=== PATIENT | female | born 1960 | race Caucasian/White ===

== ENCOUNTER 2017-06-19 10:39 | Observation (INO) ==
--- NOTE | 2017-06-19 11:22 | Emergency Department Note ---
Disposition Clinical Impression: Stroke Qualifiers: CVA mechanism: occlusion Precerebral and cerebral artery: unspecified cerebral artery Qualified Code(s): I63.50 - Cerebral infarction due to unspecified occlusion or stenosis of unspecified cerebral artery Disposition: Admitted As Inpatient Condition: Fair Time of Disposition: 15:23 Neuro HPI - General Chief Complaint: ED Neuro Symptoms/Deficit Stated Complaint: numbness on right side x 2 days Time Seen by Provider: 06/19/17 10:53 Source: patient Limitations: no limitations Nursing Notes Reviewed: Yes Vital Signs Reviewed: Yes - History of Present Illness HPI Narrative: Patient is a 57-year-old female presents the emergency department with right- sided numbness. She states that this began approximately 2 days ago around 5: 30 PM. She said it has gotten slightly worse. She denies anything making her symptoms any better or worse. She states that she has tried ibuprofen and Tylenol without any relief. She says that she can feel touch but it just feels somewhat tingly. She denies any dizziness or difficulty with speech. She states that she was seen at [facility] on Thursday evening and had a CT scan, EKG and blood work and everything appeared to be fine. She states that she is coming to the emergency department due to the symptoms not getting any better. - Related Data Home Medications: Home Medications Medication Instructions Recorded Confirmed Ascorbic Acid [Vitamin C] 1,000 mg PO DAILY 06/19/17 06/19/17 Cyanocobalamin (Vitamin B-12) 1,000 mcg PO DAILY 06/19/17 06/19/17 [Vitamin B12] Lisinopril [Zestril] 20 mg PO DAILY 06/19/17 06/19/17 Vitamin E (Dl,Tocopheryl Acet) 1,000 unit PO DAILY 06/19/17 06/19/17 [Vitamin E] glipiZIDE [Glipizide] 10 mg PO BIDWM 06/19/17 06/19/17 metFORMIN [Glucophage] 1,000 mg PO QPM 06/19/17 06/19/17 metFORMIN [Glucophage] 1,500 mg PO QAM 06/19/17 06/19/17 Previous Rx's Medication Instructions Recorded Clopidogrel [Plavix] 75 mg PO DAILY #30 tablet 06/20/17 Rosuvastatin [Crestor] 20 mg PO HS #30 tablet 06/20/17 Allergies/Adverse Reactions: Allergies Allergy/AdvReac Type Severity Reaction Status Date / Time Penicillins Allergy Hives Verified 06/19/17 10:44 aspirin AdvReac See Verified 06/19/17 14:57 Comments morphine AdvReac Vomiting Verified 06/19/17 10:44 All systems ED: reviewed and negative except as stated. Neurological: Reports: numbness, paresthesias Past Medical History - Past Medical History Medical history: Reports: diabetes, hypertension Psychiatric history: Reports: no psych history CERTIFIED OPHTHALMIC ASSISTANT history: Reports: no CERTIFIED OPHTHALMIC ASSISTANT history - Social History Smoking Status: Current every day smoker Smokeless Tobacco Status: No Alcohol use: Reports: none Drug use: Reports: none Physical Exam - General Limitations: no limitations General appearance: alert, in no apparent distress - Head Head exam: atraumatic, normocephalic - Eye Eye exam: Present: normal appearance, PERRL, EOMI - ENT ENT exam: normal exam, normal oropharynx, mucous membranes moist - Neck Neck exam: Present: normal inspection, full ROM, trachea midline - Respiratory Respiratory exam: Present: normal lung sounds bilaterally. Absent: respiratory distress, wheezes - Cardiovascular Cardiovascular exam: Present: regular rate, normal rhythm, normal heart sounds, +S1, +S2 - Abdominal Exam Abdominal exam: Present: soft, Non-Tender, normal bowel sounds - Neurological Exam Neurological exam: Present: alert, oriented X3, CN II-XII intact, normal gait - Expanded Neurological Exam Patient oriented to: Present: person, place, time Speech: Present: fluid speech Cranial nerves: EOM function (II, III, IV, ): Normal, facial sensation (V): Abnormal Right (Decresed sensation to the right side of face), facial palsy (VII ): Normal, gag reflex (IX): Normal, spinal accessory function (XI): Normal, tongue deviation (XII): Normal Cerebellar function: finger to nose: Normal, heel to [place]: Normal Cerebellar function: normal gait, Romberg normal Motor strength - LUE: 5/5 Motor strength - RUE: 5/5 Motor strength - LLE: 5/5 Motor strength - RLE: 5/5 Upper motor neuron exam: brenda neglect: Absent bilaterally, pronator drift: Absent bilaterally Sensory exam upper extremity: light touch: Abnormal Right (decreased senation on the right ) Sensory exam lower extremity: light touch: Abnormal Right (decreased sensation on the right) Coma Scale Eye Opening: Spontaneous Coma Scale Motor Response: Obeys Commands Coma Scale Verbal Response: Oriented Coma Scale Total: 15 - Psychiatric Psychiatric exam: Present: normal affect, normal mood - Skin Skin exam: Present: warm, dry, intact Course Vital Signs Temperature 98.7 F 06/19/17 10:44 Pulse Rate 103 06/19/17 10:44 Respiratory Rate 20 06/19/17 10:44 Blood Pressure 135/87 06/19/17 10:44 O2 Sat by Pulse Oximetry 94 06/19/17 10:44 Temperature 98.6 F 06/20/17 15:32 Pulse Rate 97 06/20/17 15:32 Respiratory Rate 14 06/20/17 15:32 Blood Pressure 161/96 06/20/17 15:32 O2 Sat by Pulse Oximetry 96 06/20/17 15:32 Oxygen Delivery Oxygen Delivery Room Air Neuro Symptoms/Deficit - MDM Narrative Medical decision making narrative: Due the patient having continued numbness on her right side we will do a noncontrast CT of the head, CBC, BMP, urinalysis and urine drug screen. We will also obtain an EKG. We will also request medical records from [facility] due to the patient being seen 2 days ago for the same chief complaint. CT of the head showed no acute intracranial abnormalities. The patient did have an elevated blood glucose of 285. Patient states that she normally runs in the 200s due to her having diabetes. The patient will be given a dose of Ativan to help her calm down and have decrease cravings for cigarettes. We will also order MRI of the brain which showed a small 6 mm infarct in the thalamus. The MRAs of the neck were negative other than some 50 % stenosis of carotid. We discussed at length with the patient that she has had a stroke. We have encouraged the patient to be admitted to the hospital for further workup and management. The patient was somewhat resistant to being admitted but in the end agreed to stay in the hospital overnight. I called and spoke with the hospitalist who is except the patient to his service. The patient will be admitted to the hospital at this time. - Medical Records Medical records reviewed: Yes I reviewed the patient's medical records. - Lab Data Lab results reviewed: Yes I reviewed the patient's lab results. Result diagrams: 06/20/17 03:04 06/20/17 03:04 Lab Results 06/19/17 06/19/17 06/19/17 Range/Units 11:24 11:24 11:54 WBC 10.4 (4.3-11.1) K/mcL RBC 5.07 H (3.82-4.97) M/mcL Hgb 15.5 H (11.5-15.4) g/dL Hct 44.1 (35.3-44.9) % MCV 87.0 (83.0-100.0) fL MCH 30.6 (28.0-33.3) pg MCHC 35.1 (31.6-35.5) g/dL RDW 12.6 (11.5-14.5) % Plt Count 199 (140-400) K/mcL MPV 12.1 (9.4-12.4) fL Immature Gran % 0.5 (0-4) % Seg Neutrophils % 56.8 % Lymphocytes % 33.3 % Monocytes % 6.2 % Eosinophils % 2.3 % Basophils % 0.9 % Neutrophils # 5.9 (1.6-8.9) K/mcL Lymphocytes # 3.5 (0.6-4.6) K/mcL Monocytes # 0.6 (0.0-1.3) K/mcL Eosinophils # 0.2 (0.0-0.6) K/mcL Basophils # 0.1 (0.0-0.2) K/mcL PT (9.4-12.1) Seconds INR APTT (26.0-36.0) Seconds Sodium (136-145) mEq/L Potassium (3.5-5.1) mEq/L Chloride (98-107) mEq/L Carbon Dioxide (23-29) mEq/L BUN (6-20) mg/dL Creatinine (0.60-1.20) mg/dL Est GFR ( Amer) (> 60) Est GFR (Non-Af Amer) (> 60) BUN/Creatinine Ratio (6-26) Glucose (70-105) mg/dL Calculated Osmolality (280-300) Calcium (8.6-10.3) mg/dL Urine Color Yellow (Yellow) Urine Clarity Clear (Clear) Urine pH 7.0 (5.0-8.0) pH Units Ur Specific Bigelow 1.015 (1.010-1.025) Urine Protein 100 H (Neg-Trace) mg/dL Urine Glucose (UA) 100 H (Normal) mg/dL Urine Ketones Negative (Negative) mg/dL Urine Blood Negative (Negative) Urine Nitrite Negative (Negative) Urine Bilirubin Negative (Negative) Urine Urobilinogen Normal (Normal) mg/dL Ur Leukocyte Esterase Negative (Negative) Urine Microscopic RBC 0-3 (0-3) per hpf Urine Microscopic WBC 0-3 (0-3) per hpf Ur Squamous Epith Cells None Seen (None-Few) per lpf Urine Bacteria None Seen (None-Few) per hpf Hyaline Casts None Seen (None-Few) per lpf Ur Culture Indicated? NO (NO) Urine Opiates Screen Negative (Bgzvvf=636) ng/mL Ur Barbiturates Screen Negative (Dxfuzv=663) ng/mL Ur Phencyclidine Scrn Negative (Cutoff=25) ng/mL Ur Amphetamines Screen Negative (Eecbiw=2098) ng/mL U Benzodiazepines Scrn Negative (Qwsoss=840) ng/mL Urine Cocaine Screen Negative (Cutoff= 300) ng/mL U Marijuana (THC) Screen Negative (Cutoff = 50) ng/mL 06/19/17 06/19/17 Range/Units 11:54 11:54 WBC (4.3-11.1) K/mcL RBC (3.82-4.97) M/mcL Hgb (11.5-15.4) g/dL Hct (35.3-44.9) % MCV (83.0-100.0) fL MCH (28.0-33.3) pg MCHC (31.6-35.5) g/dL RDW (11.5-14.5) % Plt Count (140-400) K/mcL MPV (9.4-12.4) fL Immature Gran % (0-4) % Seg Neutrophils % % Lymphocytes % % Monocytes % % Eosinophils % % Basophils % % Neutrophils # (1.6-8.9) K/mcL Lymphocytes # (0.6-4.6) K/mcL Monocytes # (0.0-1.3) K/mcL Eosinophils # (0.0-0.6) K/mcL Basophils # (0.0-0.2) K/mcL PT 9.9 (9.4-12.1) Seconds INR 0.9 APTT 31.0 (26.0-36.0) Seconds Sodium 135 L (136-145) mEq/L Potassium 4.0 (3.5-5.1) mEq/L Chloride 104 (98-107) mEq/L Carbon Dioxide 25 (23-29) mEq/L BUN 10 (6-20) mg/dL Creatinine 0.61 (0.60-1.20) mg/dL Est GFR ( Amer) > 60 (> 60) Est GFR (Non-Af Amer) > 60 (> 60) BUN/Creatinine Ratio 16 (6-26) Glucose 285 H (70-105) mg/dL Calculated Osmolality 289 (280-300) Calcium 9.4 (8.6-10.3) mg/dL Urine Color (Yellow) Urine Clarity (Clear) Urine pH (5.0-8.0) pH Units Ur Specific Bigelow (1.010-1.025) Urine Protein (Neg-Trace) mg/dL Urine Glucose (UA) (Normal) mg/dL Urine Ketones (Negative) mg/dL Urine Blood (Negative) Urine Nitrite (Negative) Urine Bilirubin (Negative) Urine Urobilinogen (Normal) mg/dL Ur Leukocyte Esterase (Negative) Urine Microscopic RBC (0-3) per hpf Urine Microscopic WBC (0-3) per hpf Ur Squamous Epith Cells (None-Few) per lpf Urine Bacteria (None-Few) per hpf Hyaline Casts (None-Few) per lpf Ur Culture Indicated? (NO) Urine Opiates Screen (Rzkuyx=579) ng/mL Ur Barbiturates Screen (Bdnkti=762) ng/mL Ur Phencyclidine Scrn (Cutoff=25) ng/mL Ur Amphetamines Screen (Ercxrd=6379) ng/mL U Benzodiazepines Scrn (Ukbgdo=021) ng/mL Urine Cocaine Screen (Cutoff= 300) ng/mL U Marijuana (THC) Screen (Cutoff = 50) ng/mL - Radiology Data Radiology results reviewed: Yes I reviewed the patient's radiology results. Head CT 06/19/17 11:15 IMPRESSION: 1. No acute intracranial abnormality. D/ / Delroy Saldana MD / eDlroy Saldana MD Interpreting Provider: Delroy Saldana MD Brain MRI 06/19/17 12:06 IMPRESSION: There is a 6 mm area of restricted diffusion involving the lateral aspect of the left thalamus consistent with an acute infarct. No other areas of restricted diffusion. Minimal chronic small vessel ischemic changes in the white matter. D/ / 06/19/2017 13:48:37 Jayla Diaz MD / [facility] Interpreting Provider: Jayla Diaz MD Neck MRA 06/19/17 12:06 IMPRESSION: Mild, less than 50%, stenosis of the internal carotid arteries. No intracranial flow-limiting stenosis or aneurysm. D/ 06/19/2017 13:49:05 Bijan Mock MD / [facility] Interpreting Provider: Bijan Mock MD Head MRA 06/19/17 12:21 IMPRESSION: Mild, less than 50%, stenosis of the internal carotid arteries. No intracranial flow-limiting stenosis or aneurysm. D/ /19/2017 13:49:05 Bijan Mock MD / [facility] Interpreting Provider: Bijan Mock MD - EKG Data EKG attestation: Yes I reviewed and interpreted this EKG. EKG results narrative: EKG showed a sinus rhythm rate of 99 bpm, WA interval 180, QRS duration of 102, QTC of 407 there is no previous EKG for comparison at this time. NIH Stroke Scale - Level of Consciousness LOC: Alert - LOC Questions LOC Questions: Answers both correctly - LOC Commands LOC Commands: Performs both correctly - Best Gaze Best Gaze: Normal - Visual Visual: No visual loss - Facial Palsy Facial Palsy: Normal - Motor Arms Motor Arm-Left: No drift for 10 seconds Motor Arm-Right: No drift for 10 seconds - Motor Legs Motor Leg-Left: No drift for 5 seconds Motor Leg-Right: No drift for 5 seconds - Limb Ataxia Limb Ataxia: Normal, No Ataxia - Sensory Sensory: Mild to moderate loss, "not as sharp" - Best Language Best Language: No aphasia - Dysarthria Dysarthria: Normal - Extinction and Inattention Extinction and Inattention: Normal - NIHSS Total Score NIHSS Total Score: 1 Attestation Statement - Attestation Attestation: I examined this patient and my medical decision-making was reviewed with the Resident Physician. I agree with the documented findings, disposition and treatment plan as described except to the extent set forth below. Findings consistent with stroke. MRI consistent with stroke. We will admit for medical maximization and advanced testing including cardiac echo. Patient cannot get aspirin as she has a disorder interrupting platelet function. I spent greater than 35 minutes of critical care time resuscitating this acutely ill patient suffering from stroke. This is a sodium billable procedures.
[2017-06-19 11:37] LABS: Bilirubin,Urine Negative (Negative); Blood,Urine Negative (Negative); Clarity,Urine Clear (Clear); Color,Urine Yellow (Yellow); Glucose,Urine (UA) 100 mg/dL (Normal); Ketones,Urine Negative (Negative); Leukocyte Esterase,Urine Negative (Negative); Nitrite,Urine Negative (Negative); Protein,Urine 100 mg/dL (Neg-Trace); Specific Gravity,Urine 1.015 (1.010-1.025); Urobilinogen,Urine Normal (Normal)
[2017-06-19 11:43] LABS: Bacteria,Urine None Seen per hpf (None-Few); Hyaline Casts,Urine None Seen per lpf (None-Few); RBC,Urine 0-3 per hpf (0-3); Squamous Epithelial Cell,Urine None Seen per lpf (None-Few); WBC,Urine 0-3 per hpf (0-3)
[2017-06-19 11:45] LABS: Amphetamine Screen,Urine Negative ng/mL (Cutoff=1000); Barbiturate Screen,Urine Negative ng/mL (Cutoff=200); Benzodiazepines Screen,Urine Negative ng/mL (Cutoff=200); Cannabinoid Screen,Urine Negative ng/mL (Cutoff = 50); Cocaine Screen,Urine Negative ng/mL (Cutoff= 300); Opiate Screen,Urine Negative ng/mL (Cutoff=300); Phencyclidine Screen,Urine Negative ng/mL (Cutoff=25)
[2017-06-19 12:22] LABS: Basophils # 0.1 K/mcL (0.0-0.2); Basophils % 0.9 %; Eosinophils # 0.2 K/mcL (0.0-0.6); Eosinophils % 2.3 %; Hematocrit 44.1 % (35.3-44.9); Hemoglobin 15.5 g/dL (11.5-15.4); Immature Granulocytes % 0.5 % (0-4); Lymphocytes # 3.5 K/mcL (0.6-4.6); Lymphocytes % 33.3 %; Mean Corpuscular HGB Conc 35.1 g/dL (31.6-35.5); Mean Corpuscular Hemoglobin 30.6 pg (28.0-33.3); Mean Platelet Volume 12.1 fL (9.4-12.4); Monocytes # 0.6 K/mcL (0.0-1.3); Monocytes % 6.2 %; Neutrophils # 5.9 K/mcL (1.6-8.9); Platelet Count 199 K/mcL (140-400); Red Blood Count 5.07 M/mcL (3.82-4.97); Red Cell Distribution Width 12.6 % (11.5-14.5); Segmented Neutrophils % 56.8 %
[2017-06-19 12:28] LABS: INR 0.9; Prothrombin Time 9.9 Seconds (9.4-12.1)
[2017-06-19 12:54] LABS: BUN/Creatinine Ratio 16 (6-26); Blood Urea Nitrogen 10 mg/dL (6-20); Calcium 9.4 mg/dL (8.6-10.3); Carbon Dioxide 25 mEq/L (23-29); Chloride 104 mEq/L (98-107); Glucose 285 mg/dL (70-105); Osmolality,Calculated 289 (280-300); Sodium 135 mEq/L (136-145); eGFR For African Americans > 60 (> 60); eGFR For Non-African Americans > 60 (> 60)
[2017-06-19] MEDS ORDERED: *HR* LORazepam 2 MG/ML VIAL IVP ONE (14:48)
[2017-06-19] MEDS ORDERED: Naloxone 0.4 MG/ML INJ IVP PRN (16:12)
[2017-06-19] MEDS ORDERED: MOM Conc 10 ML UD.LIQ PO PRN (16:12)
[2017-06-19] MEDS ORDERED: Acetaminophen 325 MG TABLET PO PRN (16:12)
[2017-06-19] MEDS ORDERED: *HR* HYDROcodone/Acet 5/325 mg TABLET PO PRN (16:12)
[2017-06-19] MEDS ORDERED: Ondansetron ODT 4 MG TAB.RAPDIS SL PRN (16:12)
[2017-06-19] MEDS ORDERED: D5% in Water 1,000 ML IVC PRN (16:18)
[2017-06-19] MEDS ORDERED: *HR* Dextrose 50 % in Water (Syg) 50 ML SYRINGE IVP PRN (16:18)
[2017-06-19] MEDS ORDERED: Dextrose Gel 15 GM PO PRN ×2 (16:18)
--- NOTE | 2017-06-19 16:33 | Internal Med History&Physical ---
Date of Encounter: 06/19/17 Time of Encounter: 15:50 Assessment and Plan (1) CVA (cerebral vascular accident) Current visit: Yes Status: Acute Patient reports sudden onset right-sided numbness and weakness 2 days ago. She reported that it started in left lower extremity and spread "in a wave" to entire right lower extremity, right hand, right arm, right face. Patient has sensory deficit in right foot, patient has some minimal right hand swelling, obvious right arm weakness. Grasps are strong and equal, she is able to also grasp a pen. There is no pronator drift. Bilateral leg strength is strong and equal. There is no facial droop, facial movements are symmetrical. She has no dysphagia or dysarthria. Brain MRI showed 6 mm area of restricted diffusion involving lateral aspect of left thalamus consistent with acute infarct, as well as minimal chronic small vessel ischemic changes in the white matter. Neck and head MRA showed less than 50% stenosis of ICAs, no intracranial flow limiting stenosis or aneurysm. Head CT was negative for acute intracranial abnormality. In the past, patient has been resistant to taking any form of antiplatelet or anticoagulation due to Schamburg's disease. She also states she has been unsuccessful with statins in the past. She is reports nausea, vomiting, body aches when taking a statin. I discussed starting ASA with physician, will start ASA 81mg po daily and monitor. Continuous telemetry PT and OT consultations Echo pending Neurology consultation is pending. I spoke with Dr. Tian via phone. I appreciate his consultation and recommendations. Qualifiers: CVA mechanism: occlusion Precerebral and cerebral artery: other precerebral artery Qualified Code(s): I63.29 - Cerebral infarction due to unspecified occlusion or stenosis of other precerebral arteries (2) Right sided weakness Current visit: Yes Status: Acute Plan as above. (3) Type II diabetes mellitus Current visit: Yes Status: Acute A1c in the morning. Continue diabetic diet, sliding scale insulin, Accu-Cheks before meals and at bedtime Qualifiers: Diabetes mellitus complication status: without complication Diabetes mellitus intermediate insulin use: without watermelon inspector use Qualified Code(s): E11.9 - Type 2 diabetes mellitus without complications (4) HTN (hypertension) Current visit: Yes Status: Acute Blood pressure slightly above baseline, we will allow for permissive hypertension. Continue to closely monitor vital signs. 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 Patient with purpura to bilateral lower extremities. She denies pain. (6) DVT prophylaxis Current visit: Yes Status: Acute Patient up to chair, bathroom privileges. SCDs ordered. Internal Medicine - H&P: HPI Chief complaint: left side weakness/numbness Admitted From: Home Plans for Post Hospital Care: Home History of present illness: Ms. Dobbins is a 57 year old female with PMH including DMII, HTN, and Schamberg's Ds. Pt reports that she began having left leg numbness and weakness after standing from dining room table. Pt states that "in a wave" she had weakness and numbness extend from her left leg to left hand and arm to left face. Onset 2 night ago at approximately 1730. Pt states that she went to [facility] where she stayed for 5 hours and was told that testing was negative and she declined admission. She went home and presented here today for further testing. Pt denies headache, blurred vision, dysphagia, dysarthria, chest pain, syncope, shortness of breath, n/v/d, or diaphoresis. Pt is being admitted for CVA and monitoring. Discussed case with Dr. Lehman who agrees with plan of care. We will start pt on ASA 81mg po daily and monitor for effects of Schamberg's disease. Past Med Surg Social Fam HX - Past Medical History Medical history: diabetes, hypertension Psychiatric history: no psych history - Social History Smoking Status: Current every day smoker Smokeless Tobacco Status: No Alcohol use: none Drug use: none Internal Medicine - H&P: Meds Ascorbic Acid [Vitamin C] 1,000 mg PO DAILY 06/19/17 [History] Cyanocobalamin (Vitamin B-12) [Vitamin B12] 1,000 mcg PO DAILY 06/19/17 [History ] Lisinopril [Zestril] 20 mg PO DAILY 06/19/17 [History] Vitamin E (Dl,Tocopheryl Acet) [Vitamin E] 1,000 unit PO DAILY 06/19/17 [History ] glipiZIDE [Glipizide] 10 mg PO BIDWM 06/19/17 [History] metFORMIN [Glucophage] 1,000 mg PO QPM 06/19/17 [History] metFORMIN [Glucophage] 1,500 mg PO QAM 06/19/17 [History] 3 Allergy/AdvReac Type Severity Reaction Status Date / Time Penicillins Allergy Hives Verified 06/19/17 10:44 aspirin AdvReac See Verified 06/19/17 14:57 Comments morphine AdvReac Vomiting Verified 06/19/17 10:44 All Systems PM: A 10-system review of systems was performed and is negative for pertinent findings except as documented above in the HPI. - Constitutional Constitutional: weakness, no chills, no fever(s), no night sweats - EENT Eyes: no change in vision, no discharge, no pain, no photophobia Ears: no ear discharge, no ear pain, no tinnitus Nose, mouth and throat: no dysphagia, no nasal discharge, no neck pain, no sore throat - Cardiovascular Cardiovascular ROS IM: no chest pain, no diaphoresis, no dyspnea, no irregular heart rhythm, no lightheadedness, no palpitations, no syncope - Respiratory Respiratory: no cough, no dyspnea, no wheezing, no stridor, no pain on inspiration, no excessive phlegm production - Gastrointestinal Gastrointestinal: no abdominal pain, no change in bowel habits, no diarrhea, no hematemesis, no hematochezia, no melena, no nausea, no vomiting - Genitourinary Genitourinary: no change in urinary stream, no dysuria, no flank pain, no hematuria - Musculoskeletal Musculoskeletal ROS IM: muscle weakness, numbness, no back pain, no tingling - Integumentary Integumentary IM: no rash, no unusual bruising - Neurological Neurological ROS: numbness, paresthesias, weakness, no confusion, no convulsions , no dizziness, no focal weakness, no headache(s), no loss of vision, no tingling, no tremor(s) - Hematologic/Lymphatic Hematologic/Lymphatic: no easy bruising, no lymphadenopathy - Constitutional Vitals: Temp Pulse Resp BP Pulse Ox 97.6 F 98 14 157/95 95 06/19/17 15:52 06/19/17 15:52 06/19/17 15:52 06/19/17 15:52 06/19/17 15:52 General appearance: Present: cooperative, A&O X 3, pleasant, no acute distress, answers questions appropriately - Head Head exam: Present: atraumatic, normal inspection, normocephalic - Eye Eye exam: Present: normal appearance, conjuntiva pink, sclera anicteric. Absent : nystagmus - Neck Neck exam general surgery: Present: normal inspection, supple, trachea midline. Absent: lymphadenopathy, tenderness, thyromegaly - Respiratory Respiratory exam: Present: CTAB. Absent: accessory muscle use, chest wall tenderness, rales, respiratory distress, rhonchi, wheezes - Cardiovascular Cardiovascular exam: Present: RRR, +S1, +S2. Absent: diastolic murmur, gallop, rubs, systolic murmur - GI/Abdominal GI/Abdominal exam: Present: normal bowel sounds, soft, no peritoneal signs. Absent: distended, hepatomegaly, tenderness - Extremities Exam Extremities exam: Present: normal capillary refill, warm, radial pulses palpable and symmetrical. Absent: calf tenderness, cyanotic, pedal edema, tenderness - Neurological Exam Neurological exam: Present: alert, motor sensory deficit, oriented X3. Absent: altered, strengths equal and symetr throughout, facial droop, speech deficit - Skin Skin exam: Present: dry, intact, normal color, petechiae, warm. Absent: rash Internal Med - H&P Results - Labs CBC & Chem 7: 06/19/17 11:54 06/19/17 11:54
[2017-06-19] MEDS: Insulin LISPRO 300 UNITS/3 ML VIAL SQ SCH ×2 (17:21→17:26)
[2017-06-19] MEDS: Aspirin 81 MG TAB.CHEW PO SCH ×2 (17:41→17:51)
[2017-06-19] MEDS: Nicotine 14 MG PATCH.TD24 TD SCH ×2 (17:52→18:13)
[2017-06-19] MEDS: *HR* Heparin 5,000 UNIT/ML VIAL SQ SCH (18:28)
--- NOTE | 2017-06-19 18:40 | Event Note ---
Date of Encounter: 06/19/17 Time of Encounter: 18:37 Patient seen and examined with nurse practitioner. Acute left CVA due to left thalamic infarct causing right-sided Jluis-hypothesia. She mentioned that she had previously evidence of 70 to 80% occlusion and the left carotid but then she was symptomatic. Stroke workup. NIH stroke scale Q4 hours. She has a diagnosis of Schamberg disease which can get worse with aspirin. However discussed with her that it is not life-threatening, and aspirin is important for secondary prevention of stroke. Appreciate neurology input
[2017-06-19] MEDS ORDERED: Insulin LISPRO 300 UNITS/3 ML VIAL SQ SCH (21:00)
[2017-06-20 04:08] LABS: Basophils # 0.1 K/mcL (0.0-0.2); Basophils % 0.8 %; Eosinophils # 0.3 K/mcL (0.0-0.6); Eosinophils % 2.7 %; Hematocrit 42.1 % (35.3-44.9); Hemoglobin 14.3 g/dL (11.5-15.4); Immature Granulocytes % 0.7 % (0-4); Lymphocytes % 42.1 %; Mean Corpuscular Hemoglobin 29.9 pg (28.0-33.3); Mean Corpuscular Volume 87.9 fL (83.0-100.0); Mean Platelet Volume 12.2 fL (9.4-12.4); Monocytes # 0.6 K/mcL (0.0-1.3); Monocytes % 6.7 %; Neutrophils # 4.5 K/mcL (1.6-8.9); Platelet Count 189 K/mcL (140-400); Red Blood Count 4.79 M/mcL (3.82-4.97); Red Cell Distribution Width 12.7 % (11.5-14.5)
[2017-06-20 04:14] LABS: Hemoglobin A1C 10.1 %
[2017-06-20 04:26] LABS: BUN/Creatinine Ratio 19 (6-26); Blood Urea Nitrogen 13 mg/dL (6-20); Calcium 8.9 mg/dL (8.6-10.3); Carbon Dioxide 26 mEq/L (23-29); Chloride 101 mEq/L (98-107); Chol/HDL Ratio 8.9 (0-4.9); Cholesterol 239 mg/dL (< 200); Glucose 398 mg/dL (70-105); HDL Cholesterol 27 mg/dL (40-59); Osmolality,Calculated 295 (280-300); Potassium 3.6 mEq/L (3.5-5.1); Sodium 134 mEq/L (136-145); Triglycerides 846 mg/dL (< 150); eGFR For African Americans > 60 (> 60); eGFR For Non-African Americans > 60 (> 60)
[2017-06-20] MEDS: *HR* Heparin 5,000 UNIT/ML VIAL SQ SCH (05:05)
--- NOTE | 2017-06-20 07:59 | Electrocardiograph Report ---
[address] [place] [id number] Test Date: 2017-06-19 Pat Name: Judie Dobbins Department: 104 Room: 2NE28 Gender: F Malt Loader: DREW : 1960 Requested By: Kurt Summers Order Number: [id number] Reading MD: Rafat Guillen DO Measurements Intervals Rufus Rate: 99 P: 35 VA: 180 QRS: -65 QRSD: 102 T: 31 QT: 351 QTc: 407 Interpretive Statements SINUS RHYTHM POSSIBLE LEFT ATRIAL ENLARGEMENT LEFT ANTERIOR FASCICULAR BLOCK ANTEROLATERAL MYOCARDIAL INFARCTION, OF INDETERMINATE AGE Electronically Signed On 06-20-2017 7:57:45 EST by Rafat Guillen DO
[2017-06-20] MEDS: Insulin LISPRO 300 UNITS/3 ML VIAL SQ SCH ×2 (08:04→12:27)
[2017-06-20] MEDS: Nicotine 14 MG PATCH.TD24 TD SCH (08:05)
[2017-06-20] MEDS: Aspirin 81 MG TAB.CHEW PO SCH (08:07)
[2017-06-20] MEDS ORDERED: Lisinopril 20 MG TABLET PO SCH (09:00)
[2017-06-20] MEDS ORDERED: Cyanocobalamin (B-12) 1,000 MCG TABLET PO SCH (09:00)
[2017-06-20] MEDS ORDERED: Ascorbic Acid 500 MG TABLET PO SCH (09:00)
[2017-06-20] MEDS ORDERED: VITAMIN E PO SCH (09:00)
--- NOTE | 2017-06-20 14:36 | Discharge Summary ---
Date of Encounter: 06/20/17 Time of Encounter: 11:00 - Discharge Diagnosis (1) CVA (cerebral vascular accident) Priority: Primary Status: Acute Qualifiers: CVA mechanism: occlusion Precerebral and cerebral artery: other precerebral artery Qualified Code(s): I63.29 - Cerebral infarction due to unspecified occlusion or stenosis of other precerebral arteries (2) Type II diabetes mellitus Priority: Secondary Status: Acute Qualifiers: Diabetes mellitus complication status: without complication Diabetes mellitus supervisor intermediates insulin use: without half-way use Qualified Code(s): E11.9 - Type 2 diabetes mellitus without complications (3) HTN (hypertension) Priority: Secondary Status: Acute Qualifiers: Hypertension type: essential hypertension Qualified Code(s): I10 - Essential (primary) hypertension (4) Schamberg's disease Priority: Secondary Status: Chronic - Discharge Medications Prescriptions: Clopidogrel [Plavix] 75 mg PO DAILY #30 tablet Rosuvastatin [Crestor] 20 mg PO HS #30 tablet Home Medications: Ascorbic Acid [Vitamin C] 1,000 mg PO DAILY 06/19/17 [History] Cyanocobalamin (Vitamin B-12) [Vitamin B12] 1,000 mcg PO DAILY 06/19/17 [History ] Lisinopril [Zestril] 20 mg PO DAILY 06/19/17 [History] Vitamin E (Dl,Tocopheryl Acet) [Vitamin E] 1,000 unit PO DAILY 06/19/17 [History ] glipiZIDE [Glipizide] 10 mg PO BIDWM 06/19/17 [History] metFORMIN [Glucophage] 1,000 mg PO QPM 06/19/17 [History] metFORMIN [Glucophage] 1,500 mg PO QAM 06/19/17 [History] Clopidogrel [Plavix] 75 mg PO DAILY #30 tablet 06/20/17 [Rx] Rosuvastatin [Crestor] 20 mg PO HS #30 tablet 06/20/17 [Rx] Allergies/Adverse Reactions: 3 Allergy/AdvReac Type Severity Reaction Status Date / Time Penicillins Allergy Hives Verified 06/19/17 10:44 aspirin AdvReac See Verified 06/19/17 14:57 Comments morphine AdvReac Vomiting Verified 06/19/17 10:44 Procedures/tests Complete & Pending: Procedures Performed prior 72 hours Category Date Time Status EV echocardiogram Routine Y 06/19/17 16:16 Completed Date of admission: 06/19/17 15:27 Primary care physician: PCP NONE Consults: 06/19/17 16:15 Consult to Occupational Therapy [CONS] Routine Comment: Evaluate, develop and implement POC Reason for Consult: Evaluation s/p CVA Consult to Physical Therapy [CONS] Routine Comment: Evaluate, develop and implement POC Reason for Consult: Evaluation s/p CVA 06/19/17 16:58 Consult to Neurology [CONS] Routine Consulting Provider: Neurology [facility] Reason for Consult: CVA, right sided weakness Call Completed: No - Patient Status Disposition: Home, Self-Care Condition: Fair - Discharge Instructions Follow Up With: NONE,PCP [Primary Care Provider] - Hospital course: Patient is a 57-year-old female past medical history significant for DMII, HTN, and Schamberg's disease who presents to the ER on 06/19/17 due to left sided ultrasound sensation and weakness. Patient reported that shortly after standing up from the dining room table she experienced left upper and lower extremity numbness and weakness She was concerned and decided to go to [facility] ER where she stayed for 5 hours and was told that testing was negative and she declined admission. She went home and presented to [facility] ON 06/19/17 for further testing and patient was admitted to medical surgical floor for further evaluation and workup. During patients hospital stay, MRI of the brain was done which showed a 6 mm area of restricted diffusion involving the lateral aspect of the left thalamus consistent with an acute infarct. MRA of the head and neck was also done which showed a mild, less than 50%, stenosis of the internal carotid arteries. An echocardiogram was also done which showed No evidence of PFO with agitated saline contrast. Neurology was consulted with recommendations for discontinuation of aspirin and to start Plavix in addition to starting a statin. - Time Spent with Patient Total time spent providing and/or coordinating discharge services: Less than 30 minutes - Constitutional Vitals: Temp Pulse Resp BP Pulse Ox 97.7 F 89 14 170/89 94 06/20/17 11:22 06/20/17 11:22 06/20/17 11:22 06/20/17 11:22 06/20/17 11:22 General appearance: Present: cooperative, A&O X 3, pleasant, no acute distress, answers questions appropriately - Respiratory Respiratory exam: Present: CTAB. Absent: accessory muscle use, rales, rhonchi, wheezes - Cardiovascular Cardiovascular exam: Present: RRR, +S1, +S2. Absent: diastolic murmur, gallop, rubs, systolic murmur
[2017-06-20 15:36] VITALS: BP 161/96
--- NOTE | 2017-06-20 19:58 | Neurology - Consult Note ---
Date of Encounter: 06/20/17 Time of Encounter: 11:51 Assessment and Plan (1) CVA (cerebral vascular accident) Current Visit: Yes Status: Acute Likely lacunar infarct secondary to small vessel occlusion, related to history of HTN and hyperlipidemia. Is relatively contraindicated for aspirin as it triggers her schamberg syndrome. Will recommend plavix 75mg daily instead of aspirin. However, Plavix may also aggravate her schamberg symptoms. Needs close clinical monitoring. Continue statin therapy for hyperlipidemia. Patient's work up for stroke completed. Await echocardiography report. Patient can be discharged home it echocardiography returns unremarkable Qualifiers: CVA mechanism: occlusion Precerebral and cerebral artery: unspecified cerebral artery Qualified Code(s): I63.50 - Cerebral infarction due to unspecified occlusion or stenosis of unspecified cerebral artery History of Present Illness Chief complaint: right sided numbness HPI: Ms. Dobbins is a 57 year old female with PMH significant for HTN and hyperlipidemia who developed acute onset of right sided paresthesia. The symtoms started on Thursday when she was eating. She suddenly developed right sided paresthesia, strictly midline fashion. She felt water pouring on her right leg. No weakness, no speech difficulty, no mental status changes. She had HTN for about 8-9 years. She has been taking lisinopril few years. She has hyperlipidemia. She has Schamberg syndrome, which was triggered by Aspirin. MRI of brain without contrast showed acute lacunar infarct involving the left posterior limb of internal capsule. Echocardiography completed and reports is still pending. She feels fine but the right sided paresthesia still present. Past Med Surg Social Fam HX - Past Medical History Medical history: diabetes, hypertension Psychiatric history: no psych history - Social History Smoking Status: Current every day smoker Smokeless Tobacco Status: No Alcohol use: none Drug use: none Medications and Allergies Ascorbic Acid [Vitamin C] 1,000 mg PO DAILY 06/19/17 [History] Cyanocobalamin (Vitamin B-12) [Vitamin B12] 1,000 mcg PO DAILY 06/19/17 [History ] Lisinopril [Zestril] 20 mg PO DAILY 06/19/17 [History] Vitamin E (Dl,Tocopheryl Acet) [Vitamin E] 1,000 unit PO DAILY 06/19/17 [History ] glipiZIDE [Glipizide] 10 mg PO BIDWM 06/19/17 [History] metFORMIN [Glucophage] 1,000 mg PO QPM 06/19/17 [History] metFORMIN [Glucophage] 1,500 mg PO QAM 06/19/17 [History] Clopidogrel [Plavix] 75 mg PO DAILY #30 tablet 06/20/17 [Rx] Rosuvastatin [Crestor] 20 mg PO HS #30 tablet 06/20/17 [Rx] 3 Allergy/AdvReac Type Severity Reaction Status Date / Time Penicillins Allergy Hives Verified 06/19/17 10:44 aspirin AdvReac See Verified 06/19/17 14:57 Comments morphine AdvReac Vomiting Verified 06/19/17 10:44 All Systems: A 10-system review of systems was performed and is negative for pertinent findings except as documented above in the HPI. Physical Examination - Vital Signs Vital Signs: Initial Vital Signs Temp Pulse Resp BP Pulse Ox 98.7 F 103 20 135/87 94 06/19/17 10:44 06/19/17 10:44 06/19/17 10:44 06/19/17 10:44 06/19/17 10:44 - Constitutional General appearance: comfortable - Neurologic Detailed motor examination: full strength in all major muscle groups Motor examination - right side: 5/5: deltoids, biceps, triceps, wrist flexion, wrist extension, sales merchandising specialist, hip flexors, tibialis Anterior, quadriceps, toe extension (EHL), plantarflexion Motor examination - left side: 5/5: deltoids, biceps, triceps, wrist flexion, wrist extension, hip flexors, sales merchandising specialist, quadriceps, tibialis Anterior, toe extension (EHL), plantarflexion Detailed sensory examination: other (right sided hemiparesthesia noted. ) Posture: other (None) Reflex and gait examination: intact Reflexes: Biceps: 2+, Triceps: 2+, Brachioradialis: 2+, Patella: 2+, Achilles: 2 + Mental Status Examination: awake, alert, oriented to person, oriented to place, oriented to time, follows commands appropriately, answers questions appropriately, no agnosia, no aphasia, no aproxia Cranial nerve examination: PERRL, EOMI, visual [place] intact, corneal reflexes brisk symmetrically, sensory to face intact, mastication intact, no facial asymmetry is present, no dysarthria, hearing is intact symmetrically, soft palate elevates bilaterally upon phonation, gag reflex intact, flexes SCM and trapezius muscles symmetrically with full power, tongue protrudes midline, no atrophy or facial fasiculations present Cerebellar examination: no dysmetria, performs finger to nose and heel to [place] symmetrically without ataxia, no gait ataxia, no truncal ataxia, no difficulty with rapid alternating movements Results - Laboratory Findings CBC and BMP: 06/20/17 03:04 06/20/17 03:04 Abnormal lab findings: Abnormal lab results Sodium 134 mEq/L (136-145) L 06/20/17 03:04 Glucose 398 mg/dL (70-105) H 06/20/17 03:04 POC Glucose 363 (58-89) H 06/20/17 07:38 Hemoglobin A1c 10.1 % (-5.6) H 06/20/17 03:04 Triglycerides 846 mg/dL (< 150) H 06/20/17 03:04 Cholesterol 239 mg/dL (< 200) H 06/20/17 03:04 HDL Cholesterol 27 mg/dL (40-59) L 06/20/17 03:04 Cholesterol/HDL Ratio 8.9 (0-4.9) H 06/20/17 03:04 Urine Protein 100 mg/dL (Neg-Trace) H 06/19/17 11:24 Urine Glucose (UA) 100 mg/dL (Normal) H 06/19/17 11:24 - Diagnostic Findings Additional findings: MR/MR angio neck wo con IMPRESSION: Mild, less than 50%, stenosis of the internal carotid arteries. No intracranial flow-limiting stenosis or aneurysm. EV/EV echocardiogram Impressions: LVEF 60%. Mild left ventricular diastolic dysfunction. Normal right ventricular structure and function. No significant valve dysfunction. No pulmonary hypertension. No evidence of PFO with agitated saline contrast. Consult Discharge Plan - Plan Instructions: Clopidogrel (By mouth), Rosuvastatin (By mouth), Ischemic Stroke (GEN), Chronic Hypertension (DC) Additional Instructions: 1)Follow up with primary care physician in 5-7days. 2)Follow up with neurologist in 7 days. Follow-up appointments: If there is not an appointment listed below, please call your physician and schedule a follow-up appointment. If you have congestive heart failure and your symptoms return, make an appointment with your physician. Medication List: Carry an up to date list of medications you are taking at all time. We have given you an updated medication list including any new medications that you have been prescribed. Please provide that list to your primary provider Symptoms: If your condition changes or you experience any of the following symptoms, notify your physician immediately: Unusual or worsening pain, fever, persistent nausea and vomiting, bleeding, increase in swelling (especially in your legs), sudden weight gain, extreme dizziness, chest pain, increased drainage or redness from a wound or incision. Go to the emergency department if you experience a problem with breathing. Weights: If you have a history of swelling or shortness of breath, weigh yourself daily and notify your physician if you have a weight gain of two or more pounds in one day or 5 or more pounds in a week. If you experience any of the warning signs for stroke: Sudden numbness or weakness of the face, arm or leg; especially on one side of the body, sudden confusion, trouble speaking or understanding, sudden trouble seeing in one or both eyes, sudden trouble walking, dizziness, loss of balance or coordination, sudden sever headache with no cause; Call 911 or go to the emergency room. Stroke is a medical emergency. Some risk factors for stroke: Age, cigarette smoking, diabetes, excessive alcohol consumption, family history , high blood pressure, overweight, physical inactivity, prior stroke, heart attack, diagnosis of carotid artery stenosis or other artery disease. If you smoke, STOP: Smoking or tobacco use significantly increases your risk of heart and lung disease. Your chance of disease greatly increases if you continue to smoke. For more information, call the [place] tobacco quit line for smoking cessation -NOW ( ) Referrals: NONE,PCP [Primary Care Provider] - Prescriptions: Clopidogrel [Plavix] 75 mg PO DAILY #30 tablet Rosuvastatin [Crestor] 20 mg PO HS #30 tablet
== END 2017-06-20 15:00 | disposition home or self-care (01) ==
LOC: EMEROO 10:39 → INTOOBSV 15:27 → 2NENU 15:27
PROVIDERS: ADMIT Hospitalist; ATTEND Hospitalist